=== PATIENT | female | born 1980 | race Caucasian/White ===

== ENCOUNTER 2019-02-02 11:22 | Emergency (ER) | payer OTHER ==
[~2019-02-02] VITALS: Ht 160 cm; Wt 60.0 kg
[2019-02-02 11:35] VITALS: BP 147/68; PULSE 65; RESP 18; Ht 160 cm; Wt 60.0 kg
[2019-02-02] MEDS ORDERED: MED4DP PO (11:57)
[2019-02-02] MEDS ORDERED: CLOT30CR24 TOP (11:57)
[2019-02-02] MEDS ORDERED: BEN25 PO (11:57)
--- NOTE | 2019-02-02 14:27 | ERD ---
ER Documentation Chief Complaint Chief Complaint rash to neck and face this morning HPI 39-year-old female presenting with a rash to neck and face since this morning. Patient states is very itchy. She states is been there for a while however it seemed to flareup today and caused irritation. She denies any fevers. Has applied medication to the area but does not recall the name of the medication. Denies other medical problems. NKDA. Surgical history denies. Social history denies ROS All systems reviewed and are negative except as per history of present illness. Medications Home Meds Active Scripts Diphenhydramine Hcl* (Benadryl*) 25 Mg Cap, 25 MG PO Q6, #30 CAP Prov:STEVEN MCFADDEN PA-C 02/02/19 Methylprednisolone* (Medrol* DOSE PACK) 4 Mg/Dose-Pack Tab.ds.pk, 4 MG PO . DIRECTED, #1 PACKET Prov:STEVEN MCFADDEN PA-C 02/02/19 Clotrimazole* (Clotrimazole* AF) 1% - 30 Gm Cream.gm., 1 APPLIC TOP BID for 7 Days, TUB Prov:STEVEN MCFADDEN PA-C 02/02/19 PMhx/Soc Medical and Surgical Hx: pt denies Medical Hx, pt denies Surgical Hx Hx Alcohol Use: No Hx Substance Use: No Hx Tobacco Use: No Smoking Status: Never smoker FmHx Family History: No diabetes, No coronary disease, No other Physical Exam Vitals Vital Signs Date Temp Pulse Resp B/P (MAP) Pulse Ox O2 O2 Flow FiO2 Time Delivery Rate 02/02/19 97.4 65 18 147/68 97 11:35 (94) Physical Exam GENERAL: The patient is well-appearing, well-nourished, in no acute distress HEENT: Atraumatic. Conjunctivae are pink. Pupils equal, round, and reactive to light. There is no scleral icterus. Tympanic membranes clear bilaterally. Oropharynx clear. NECK: C-spine is soft and supple. There is no meningismus. There is no cervical lymphadenopathy. CHEST: Clear to auscultation bilaterally. There are no rales, wheezes or rhonchi. HEART: Regular rate and rhythm. No murmurs, clicks, rubs or gallops. SKIN: Circular type rash is noted along the neck. The rash does appear to be in the skin folds. Procedures/MDM MDM: 39-year-old female presenting with rash. Patient's rash is concerning for possible fungal infection. I will treat with supportive medications. Patient will also be discharged with steroids as it could be inflammatory. Patient is recommended to follow-up with primary care within 1 to 2 days for close evaluation. Patient is told symptoms change or worsen to return immediately to the ER. I have low suspicion for life-threatening rash. I have low suspicion for bacterial infection Departure Diagnosis: Primary Impression: Rash Condition: Stable Patient Instructions: Self-Care for Skin Rashes Referrals: [facility] YOU HAVE RECEIVED A MEDICAL SCREENING EXAM AND THE RESULTS INDICATE THAT YOU DO NOT HAVE A CONDITION THAT REQUIRES URGENT TREATMENT IN THE EMERGENCY DEPARTMENT. FURTHER EVALUATION AND TREATMENT OF YOUR CONDITION CAN WAIT UNTIL YOU ARE SEEN IN YOUR DOCTORS OFFICE WITHIN THE NEXT 1-2 DAYS. IT IS YOUR RESPONSIBILITY TO MAKE AN APPOINTMENT FOR FOLOW-UP CARE. IF YOU HAVE A PRIMARY DOCTOR --you should call your primary doctor and schedule an appointment IF YOU DO NOT HAVE A PRIMARY DOCTOR YOU CAN CALL OUR PHYSICIAN REFERRAL HOTLINE AT IF YOU CAN NOT AFFORD TO SEE A PHYSICIAN YOU CAN CHOSE FROM THE FOLLOWING [facility] [address] [facility]. [facility] [address] [facility]. [facility] [address] [facility] [facility] [facility] [address] [facility]. [facility] [place] [phone] [facility]. [facility]. [address] Additional Instructions: FOLLOW UP WITH YOUR PRIMARY CARE PHYSICIAN TOMORROW.Return to this facility if you are not improving as expected. STEVEN MCFADDEN PA-C Feb 02, 2019 14:27
== END 2019-02-02 12:14 | disposition home or self-care (01) ==
LOC: FTE 11:22
DX: R21 Rash and other nonspecific skin eruption (principal)
CPT/HCPCS: 99283

== ENCOUNTER 2019-03-08 19:34 | Emergency (ER) | payer OTHER ==
[~2019-03-08] VITALS: Ht 160 cm; Wt 60.6 kg
[~2019-03-08 19:34] MED LIST: BEN25 PO; BEN50 PO; CLOT30CR24 TOP; HC30CR25 TOP; MED4DP PO
[2019-03-08 19:37] VITALS: BP 127/78; PULSE 75; RESP 18; Ht 160 cm; Wt 60.6 kg
--- NOTE | 2019-03-08 20:44 | ERD ---
ER Documentation Chief Complaint Chief Complaint upper body rash x 1 day. c/o itch/burn HPI 39-year-old female presents with complaint of rash to her upper body for the past day. States that the rash itches. States that she has had this 3 times before. States that she has been taking an antifungal cream but has not been helping. Patient is unsure if she has any allergies. Patient denies any wheezing, stridor, respiratory distress, abdominal pain, vomiting, fevers, chills. ROS All systems reviewed and are negative except as per history of present illness. Medications Home Meds Active Scripts Diphenhydramine Hcl* (Benadryl*) 50 Mg Cap, 50 MG PO Q6H PRN for ITCHING/RASH, #30 CAP Prov:LEONCIO KNIGHT 03/08/19 Hydrocortisone* Topical (Hydrocortisone* Topical) 2.5%-28.3 Gm Cream..g., 1 APPLIC TOP BID, #1 TUB Prov:LEONCIO KNIGHT 03/08/19 Diphenhydramine Hcl* (Benadryl*) 25 Mg Cap, 25 MG PO Q6, #30 CAP Prov:STEVEN MCFADDEN PA-C 02/02/19 Methylprednisolone* (Medrol* DOSE PACK) 4 Mg/Dose-Pack Tab.ds.pk, 4 MG PO . DIRECTED, #1 PACKET Prov:STEVEN MCFADDEN PA-C 02/02/19 Clotrimazole* (Clotrimazole* AF) 1% - 30 Gm Cream.gm., 1 APPLIC TOP BID for 7 Days, TUB Prov:STEVEN MCFADDEN PA-C 02/02/19 Allergies Allergies: Coded Allergies: No Known Drug Allergies (Verified Allergy, Unknown, 03/08/19) PMhx/Soc Medical and Surgical Hx: pt denies Medical Hx, pt denies Surgical Hx Hx Alcohol Use: No Hx Substance Use: No Hx Tobacco Use: No Smoking Status: Never smoker FmHx Family History: No diabetes, No coronary disease, No other Physical Exam Vitals Vital Signs Date Temp Pulse Resp B/P (MAP) Pulse Ox O2 O2 Flow FiO2 Time Delivery Rate 03/08/19 98.9 75 18 127/78 99 19:37 (94) Physical Exam Const: No acute distress Head: Atraumatic Eyes: Normal Conjunctiva ENT: Normal External Ears, Nose and Mouth. Airways patent and clear without any angioedema. Tonsils are nonedematous. Neck: Full range of motion. No meningismus. Resp: Clear to auscultation bilaterally Cardio: Regular rate and rhythm, no murmurs Abd: Soft, non tender, non distended. Normal bowel sounds Skin: Erythematous plaques noted to the shoulders and face. Nontender to palpation. No lymphatic streaking noted. No drainage or signs of infection. Back: No midline or flank tenderness Ext: No cyanosis, or edema Neur: Awake and alert Psych: Normal Mood and Affect Results 24 hrs Current Medications Medications Dose Sig/Holley Start Time Status Last (Trade) Ordered Route PRN Stop Time Admin Dose Reason Admin 10 mg ONCE ONCE 03/08/19 Dexamethasone IM 21:00 (Decadron) 03/08/19 21:01 50 mg ONCE ONCE 03/08/19 Diphenhydrami PO 21:00 ne HCl 03/08/19 21:01 (Benadryl) Famotidine 40 mg ONCE ONCE 03/08/19 (Pepcid) PO 21:00 03/08/19 21:01 Procedures/MDM MDM: Patient's presentation is consistent with eczema versus allergic reaction. Patient will be treated with Decadron, Benadryl, Pepcid in the ER and discharged with prescription for Benadryl as well as hydrocortisone cream. Patient advised to follow-up with primary and advised not to use the steroid cream on the face for longer than a couple days. Low suspicion for Kawasaki disease, scarlet fever, necrotizing fasciitis, sepsis, gangrene, Sarbjit-Koby syndrome, toxic epidural necrolysis, abscess, cellulitis, anaphylaxis, allergic reaction. At this time, patient is stable for discharge and outpatient management. I have instructed the patient to follow-up with his/her primary care physician in 1-2 days. I have discussed with the patient the possibility of needing to see a specialist for further workup and imaging studies if symptoms persist. I have instructed the patient to promptly return to the ER for any new or worsening symptoms including but not limited to increased pain, fever, nausea, vomiting, weakness or LOC. The patient and/or family expressed understanding of and agreement with this plan. All questions were answered. Home care instructions were provided. DISCLAIMER: Inadvertent spelling and grammatical errors are likely due to EHR/dictation software use and do not reflect on the overall quality of patient care. Also, please note that the electronic time recorded on this note does not necessarily reflect the actual time of the patient encounter. Departure Diagnosis: Primary Impression: Rash Condition: Stable Patient Instructions: Self-Care for Skin Rashes Referrals: [facility] YOU HAVE RECEIVED A MEDICAL SCREENING EXAM AND THE RESULTS INDICATE THAT YOU DO NOT HAVE A CONDITION THAT REQUIRES URGENT TREATMENT IN THE EMERGENCY DEPARTMENT. FURTHER EVALUATION AND TREATMENT OF YOUR CONDITION CAN WAIT UNTIL YOU ARE SEEN IN YOUR DOCTORS OFFICE WITHIN THE NEXT 1-2 DAYS. IT IS YOUR RESPONSIBILITY TO MAKE AN APPOINTMENT FOR FOLOW-UP CARE. IF YOU HAVE A PRIMARY DOCTOR --you should call your primary doctor and schedule an appointment IF YOU DO NOT HAVE A PRIMARY DOCTOR YOU CAN CALL OUR PHYSICIAN REFERRAL HOTLINE AT IF YOU CAN NOT AFFORD TO SEE A PHYSICIAN YOU CAN CHOSE FROM THE FOLLOWING [facility] [address] [facility]. [facility] [address] [facility] [facility] [address] [facility] [facility] [address] [facility]. [facility] [address] [facility]. [facility]. [address] Additional Instructions: FOLLOW UP WITH YOUR PRIMARY CARE PHYSICIAN TOMORROW.Return to this facility if you are not improving as expected. LEONCIO KNIGHT Mar 08, 2019 20:44
[2019-03-08] MEDS ORDERED: DIPHENHYDRAMINE 50 MG CAP PO ONE (21:00)
[2019-03-08] MEDS ORDERED: FAMOTIDINE 20 MG TAB PO ONE (21:00)
[2019-03-08] MEDS ORDERED: DEXAMETHASONE 10 MG/ML 1 ML INJ IM ONE (21:00)
== END 2019-03-08 20:58 | disposition home or self-care (01) ==
LOC: FTE 19:34
DX: R21 Rash and other nonspecific skin eruption (principal)
CPT/HCPCS: 96372; J1100; Z7502; Z7610

== ENCOUNTER 2019-05-31 12:09 | Emergency (ER) | payer OTHER ==
[~2019-05-31] VITALS: Ht 160 cm; Wt 58.9 kg
[~2019-05-31 12:09] MED LIST changes: +CYCL10TA7 PO; +NAPR-985 PO
[2019-05-31 12:21] VITALS: BP 123/64; PULSE 63; RESP 18; Ht 160 cm; Wt 58.9 kg
[2019-05-31] MEDS ORDERED: KETOROLAC 30 MG INJ IM STA (14:17)
== END 2019-05-31 15:13 | disposition home or self-care (01) ==
LOC: FTE 12:09
DX: M54.5 Low back pain (principal)
CPT/HCPCS: 81003; 81025; 96372; J1885; Z7502